=== PATIENT | female | born 1965 | race Caucasian/White ===

== ENCOUNTER → 2017-02-13 | Outpatient (CLI) | payer OTHER ==
[~2017-02-13] VITALS: Ht 175.3 cm; Wt 68.0 kg
[~2017-02-13] MED LIST: AMLODIPINE BESY10 MG PO; AMLODIPINE-BEN1 EAC5 PO; CELEXA20 MG PO; CELEXA40 MG PO; CITALOPRAM HBR20 MG PO; DESYREL100 MG PO; DOLOPHINE HCL5 MG PO; FLONASE16 G1 BOTH NARES; LEXAPRO5 MG PO; LORTAB 5-325 M1 EACH PO; METOPROLOL SUC100 MG PO; NEURONTIN100 MG PO; NORVASC10 MG PO; PANTOPRAZOLE SO40 MG PO; PREMARIN0.3 MG PO; PRILOSEC40 MG PO; PRINIVIL20 MG PO; PROMETHAZINE HC50 M1 PO; Protonix PO; TOPROL XL200 MG PO; TRAZODONE HCL100 MG PO; ZANAFLEX2 MG PO; ZOFRAN ODT4 MG PO; ZOFRAN ODT8 MG PO; ZOLPIDEM TARTRA10 MG PO; celeXA PO
== END | disposition home or self-care (01) ==
LOC: AMB 07:30
DX: K29.60 Other gastritis without bleeding (principal); K29.80 Duodenitis without bleeding; I10 Essential (primary) hypertension; F17.200 Nicotine dependence, unspecified, uncomplicated; M19.90 Unspecified osteoarthritis, unspecified site; Z79.891 Long term (current) use of opiate analgesic; Z79.1 Long term (current) use of non-steroidal anti-inflammatories (NSAID)
CPT/HCPCS: 88305; 88342 TC; J2250; J3010

== ENCOUNTER 2017-03-29 15:57 | Emergency (ER) | payer OTHER ==
[~2017-03-29] VITALS: Ht 175.3 cm; Wt 65.5 kg
[2017-03-29 16:32] LABS: HEMATOCRIT 36.4 % (36.0-46.0); HEMOGLOBIN 13.2 G/DL (11.9-15.5); MCH 33.6 PG (29.0-34.0); MCHC 36.3 G/DL (30.0-36.0); MCV 92.6 FL (83-99); PLATELET COUNT 186 K/uL (156-360); RBC DIS.WIDTH-CV 11.4 % (11.8-14.6); RBC DIS.WIDTH-SD 38.9 % (39-53); RED BLOOD COUNT 3.93 M/uL (3.80-5.20); WHITE BLOOD COUNT 7.5 K/uL (4.1-10.2)
[2017-03-29 16:48] LABS: D-DIMER ELISA < 150.00 ng/mLDDU (<230)
[2017-03-29 16:53] LABS: CHLORIDE 103 MEQ/L (99-109); POTASSIUM 3.3 MEQ/L (3.7-5.4); SODIUM 138 MEQ/L (136-147); TOTAL BILIRUBIN 0.5 MG/DL (0.0-1.0)
[2017-03-29 16:59] LABS: ALKALINE PHOSPHATASE 54 IU/L (3-129); ALT (GPT) 6 IU/L (3-49); AST (GOT) 14 IU/L (2-34); CREATININE 0.8 MG/DL (0.6-1.3); GFR ESTIMATE (CALCULATED) > 59 mL/min/; GLUCOSE 76 mg/dL (70-99); LIPASE 12 U/L (1.0-51.0); TOTAL PROTEIN 6.3 G/DL (6.4-8.3); UREA NITROGEN (BUN) 6 mg/dL (9-23)
[2017-03-29 17:05] LABS: TROP-I INTERPRETATION NEGATIVE; TROPONIN-I < 0.01 ng/mL (0.0-0.30)
[2017-03-29 18:47] LABS: TROP-I INTERPRETATION NEGATIVE; TROPONIN-I < 0.01 ng/mL (0.0-0.30)
[2017-03-29 20:16] VITALS: BP 132/78
== END 2017-03-29 20:27 | disposition home or self-care (01) ==
LOC: EME 15:57
PROVIDERS: Nurse Practitioner Family
DX: R07.89 Other chest pain (principal); F17.210 Nicotine dependence, cigarettes, uncomplicated; Z71.6 Tobacco abuse counseling; E87.6 Hypokalemia; K21.9 Gastro-esophageal reflux disease without esophagitis; F41.9 Anxiety disorder, unspecified; F32.9 Major depressive disorder, single episode, unspecified; Z87.442 Personal history of urinary calculi; Z86.73 Personal history of transient ischemic attack (TIA), and cerebral infarction without residual deficits; Z90.49 Acquired absence of other specified parts of digestive tract; Z90.710 Acquired absence of both cervix and uterus
CPT/HCPCS: 71046; 80053; 83690; 84484; 85027; 85379; 93005; 99281; 99284; J2270; J7030

== ENCOUNTER 2017-09-09 13:06 | Emergency (ER) | payer OTHER ==
[~2017-09-09] VITALS: Ht 175.3 cm; Wt 66.2 kg
[2017-09-09 13:14] VITALS: BP 173/94
[2017-09-09 13:59] LABS: HEMATOCRIT 33.3 % (36.0-46.0); MCH 33.6 PG (29.0-34.0); MCV 93.3 FL (83-99); PLATELET COUNT 281 K/uL (156-360); RBC DIS.WIDTH-CV 11.8 % (11.8-14.6); RBC DIS.WIDTH-SD 40.3 % (39-53); RED BLOOD COUNT 3.57 M/uL (3.80-5.20); WHITE BLOOD COUNT 12.9 K/uL (4.1-10.2)
[2017-09-09 14:10] LABS: CHLORIDE 103 mEq/L (99-109); POTASSIUM 3.9 mEq/L (3.7-5.4); SODIUM 137 mEq/L (136-147)
[2017-09-09 14:12] LABS: GLUCOSE 102 mg/dL (70-99); TOTAL PROTEIN 6.5 g/dL (6.4-8.3)
[2017-09-09 14:14] LABS: TOTAL BILIRUBIN 0.3 mg/dL (0.0-1.0)
[2017-09-09 14:15] LABS: ALKALINE PHOSPHATASE 54 IU/L (3-129)
[2017-09-09 14:16] LABS: CREATININE 0.9 mg/dL (0.6-1.3); GFR ESTIMATE (CALCULATED) > 59 mL/min/
[2017-09-09 14:17] LABS: AST (GOT) 13 IU/L (2-34); UREA NITROGEN (BUN) 9 mg/dL (9-23)
[2017-09-09 14:19] LABS: ALT (GPT) 11 IU/L (3-49); LIPASE 36 U/L (1.0-51.0)
[2017-09-09 14:21] LABS: TROP-I INTERPRETATION NEGATIVE; TROPONIN-I < 0.01 ng/mL (0.0-0.30)
[2017-09-09 14:42] LABS: APPEARANCE CLEAR ((CLEAR)); BILIRUBIN NEGATIVE; BLOOD NEGATIVE; COLOR STRAW ((YELLOW)); GLUCOSE (STRIP) NEGATIVE; KETONES NEGATIVE; LEUKOCYTES NEGATIVE; NITRITE NEGATIVE; PROTEIN (STRIP) NEGATIVE; SPECIFIC GRAVITY 1.008 (1.000-1.030); UCUL ADDED? NO; UROBILINOGEN 0.2 MG/DL (0.2-1.0)
[2017-09-09 17:58] LABS: TROP-I INTERPRETATION NEGATIVE; TROPONIN-I < 0.01 ng/mL (0.0-0.30)
[2017-09-09] MEDS ORDERED: ZOFRAN4 MG PO (18:09)
[2017-09-09] MEDS ORDERED: ULTRAM50 MG PO (18:09)
[2017-09-09] MEDS ORDERED: BENTYL20 MG PO (18:09)
== END 2017-09-09 13:46 | disposition home or self-care (01) ==
LOC: EME 13:06
PROVIDERS: Nurse Practitioner Family
DX: R10.13 Epigastric pain (principal); R11.2 Nausea with vomiting, unspecified; I10 Essential (primary) hypertension; G89.29 Other chronic pain; Z90.49 Acquired absence of other specified parts of digestive tract; K21.9 Gastro-esophageal reflux disease without esophagitis; Z87.442 Personal history of urinary calculi; F32.9 Major depressive disorder, single episode, unspecified; F41.9 Anxiety disorder, unspecified; Z86.73 Personal history of transient ischemic attack (TIA), and cerebral infarction without residual deficits; F17.200 Nicotine dependence, unspecified, uncomplicated
CPT/HCPCS: 71046; 74177; 80053; 81003; 83690; 84484; 85027; 93005; 99281; 99285; J0500; J1885; J2405